=== PATIENT | female | born 1955 | race Caucasian/White ===

== ENCOUNTER 2024-02-20 10:51 | Outpatient (OUT) | payer MEDICARE, SELFPAY ==
--- NOTE | 2024-02-20 11:02 | XR_ITS ---
The [address] [address] Patient Name: EDMUNDO YADAV MRN: [id number] date: 1955 Sex: F Assigned Patient Location: [facility] Current Patient Location: [facility] Accession/Order Number: [id number] Exam Date: 02/20/2024 11:07 Report Date: 02/20/2024 11:42 At the request of: MARIE ALTAMIRANO Procedure: XR chest 2V EXAMINATION: XR chest 2V HISTORY: Shortness Of Breath, Chronic Cough COMPARISON: No relevant comparison available. TECHNIQUE: PA and lateral FINDINGS: LUNGS: No significant pulmonary parenchymal abnormalities. VASCULATURE: No increased pulmonary vasculature. PLEURA: No pneumothorax, effusion, or pleural thickening. CARDIAC: No cardiomegaly or cardiac silhouette abnormality. MEDIASTINUM: No visible mass or adenopathy. BONES: No fracture or visible bone lesion. OTHER: Negative. XR/XR chest 2V IMPRESSION: No acute cardiopulmonary process Electronically authenticated by: SERGIO LARES Date: 02/20/2024 11:42
== END 2024-02-20 10:52 | disposition home or self-care (01) ==
LOC: RAD 10:57
PROVIDERS: PCP Nurse Practitioner Family; Visit Provider Nurse Practitioner Family
DX: R05.3 Chronic cough (principal); R06.02 Shortness of breath
CPT/HCPCS: 71046